=== PATIENT | male | born 1985 | race Two or more races ===

== ENCOUNTER 2021-02-27 17:25 | Emergency (ER) | payer OTHER ==
[~2021-02-27] VITALS: Ht 162.6 cm; Wt 61.2 kg
[2021-02-27 18:45] VITALS: BP 108/72
== END 2021-02-27 18:47 | disposition home or self-care (01) ==
LOC: FSED 17:47
DX: R53.1 Weakness (principal); R42 Dizziness and giddiness
CPT/HCPCS: 71046; 80053; 82553; 84484; 85025; 93005; 99283